=== PATIENT | male | born 1965 ===

== ENCOUNTER 2025-02-12 12:13 | Outpatient (CLI) | payer OTHER, SELFPAY ==
--- NOTE | 2025-02-12 12:26 | ECG_ITS ---
[facility] Test Date: 2025-02-12 Pat Name: Salazar Luther Department: Room: Gender: Male Area Manager: : 1965 Requested By: Jazmin Lockett Order Number: [id number] Jorge MD: Tyrell Rainey M.D. Interpretive Statements Lung unchanged pre/post procedure; Intraprocedure shortess of breath; Symptoms resoled by discharge PROCEDURE: At the baseline, the patient's blood pressure was with a heart rate of. The baseline electrocardiogram showed normal sinus rhythm with normal ST-Ts. Incomplete right bundle branch block pattern. The patient exercised for 10 minutes and 2 seconds on a standard Pk protocol. Patient attained a maximum heart rate of 143 beats per minute(89% of the maximum predicted heart rate) with a blood pressure at the peak exercise of 198/91 mm Hg. The EKG at the peak exercise revealed. Patient did not have any chest pain or any significant cardiac arrhythmias with the exercise During the recovery phase, there were no new changes. Blood pressure at the end of the recovery phase was 163/83 mm Hg with a heart rate of 79 per minute. CONCLUSION: 1. Normal EKG response to treadmill exercise 2. No exercise-induced chest pain or cardiac arrhythmia 3. Good exercise tolerance, attained a maximum of 10.02 METs Electronically Signed On 02-17-2025 13:16:51 CDT by Tyrell Rainey M.D. [email or web address]
[2025-02-12 12:57] VITALS: BP 163/83; PULSE 79
== END 2025-02-12 12:14 | disposition home or self-care (01) ==
PROVIDERS: PCP Nurse Practitioner Family; Visit Provider Nurse Practitioner Family
DX: R07.89 Other chest pain (principal)
CPT/HCPCS: 93017